=== PATIENT | female | born 2000 | race Caucasian/White ===

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

== ENCOUNTER 2019-03-18 18:21 | Emergency (ER) | payer BC ==
--- OUTSIDE RECORDS SUMMARY | 2019-03-18 18:36 | XMS REPORT | Continuity of Care Document ---
:[address] [facility] Address [address] [place] [address] Phone Care Team Providers Name Role Phone Lucia Cordova NP Unavailable Unavailable Allergies, Adverse Reactions, Alerts Substance Reaction Status No Known Allergies Active Medications Medication Instructions Dosage Effective Dates Status Comments (start - stop) NEXPLANON Not Available - Active (unknown strength) Valtrex 1 gram Take 1 tab PO BID - No Longer tablet x 10 days Active Problems Condition Effective Dates (start - Clinical Status Comments stop) Human immunodeficiency virus [HIV] - counseling Encntr screen for infections w sexl mode of transmiss Encounter for oth general cnsl and advice on contraception Encounter for screening for human - immunodeficiency virus Human immunodeficiency virus [HIV] - counseling Dysuria [...] sexl mode of transmiss Procedures Procedure Date PREVENTIVE COUNSELING, 8-14 Minutes OFFICE/OUTPATIENT VISIT, EST OTHER Medical Services Contraceptive [facility]. Other [facility] STI N.GONORRHOEAE, DNA, AMP PROB CHYLMD DNA, AMP PROBE TRICHOMONAS VAGIN, DIR PROBE N.GONORRHOEAE, DNA, PHARYNGEAL CHYLMD, DNA, PHARYNGEAL HIV-1/HIV-2, SINGLE ASSAY Results Test Name Date and Time Measure Units Reference Range Abnormal Flag Status Comments No information Advance Directives Directive Yes / No Effective Date File Name No information Encounters Encounter Practice Location Reason(s) Diagnoses Date Provider Providers Description For Visit Copied on Encounter [facility]IVE [facility] STI Human Tasha Referring COUNSELING, [facility] [place] Testing immunodeficiency 3-201 Lucia. [address] Provider: 8-14 Minutes Southern with virus [HIV] [address], Lucia Finger Symptoms counselingEncntr [place], [place], Melissa Jin, 620 (F) ([place] [address]. s, [address] [place] complaint) infections w tel:[phone], [place], [place] [address] [place], [place], [place], [address]. [id number], er for oth tel:[phone] general cnsl and [phone] tel:[phone] advice on [phone] contraceptionEnc ounter for screening for human immunodeficiency virus [facility] Human Anjum Willett. Referring [facility] [place] immunodeficiency [address] Provider: Southern virus [HIV] [address], [place], [place], [address], [place], [address] [place], 620 aEnctr srvlnc [place]. [address] [place] [address], St, [place], [place]mal [place], [place], [place], [address]. [id number], ntr screen for [place] infections w tel:[phone] sexl mode of [phone] transmiss [facility] Human Nils-2 Anjum Willett. Referring [facility] [place] immunodeficiency [address] Provider: Southern virus [HIV] [address], [place], [place], [address], [place], [address] [place], 620 aUlceration of [place]. [address] [place] [address] [place] vulva[address]tr [address], , [place], screen [place], [place], [address]. [id number], sexl mode of [place] transmissEnctr tel:[phone] srvlnc [phone] implantable subdermal contraceptive [facility] Human Dec-1 Anjum Willett. Referring [facility] [place] immunodeficiency [address] Provider: Southern virus [HIV] [address], [place], [place], [address], [place], [address] [place], 620 srvlnc [place]. [address] [place] [address], , [place], [place], [place], [place], [address]. [id number], ntr screen for [place] infections w tel:[phone] sexl mode of [phone] transmissEncount er for screening for human immunodeficiency virus [facility] Human Oct-2 Anjum Willett. Referring [facility] [place] immunodeficiency 3 [address] Provider: Southern virus [HIV] [address], [place], [place], [address], [place], [place], [address] ter for [place]. [address] [place] test, St, St, [place], [place], [place], [address]. [id number], srvlnc [place] implantable tel:[phone] subdermal [phone] contraceptiveEnc ntr screen for infections w sexl mode of transmissEncount er for screening for human immunodeficiency virus [facility] Human Nils-1 Anjum Willett. [facility] [place] immunodeficiency [address] Southern virus [HIV] [address], [place], [place], [address], [place], [address] ter for [place]. [address] [place] test, St, [place], result [place], negativeEncounte [id number], r for screening [place] for human tel:[phone] immunodeficiency [phone] virusEnctr srvlnc implantable subdermal contraceptive [facility] Encntr screen [facility] [place] for infections w Lucia. [address] Southern sexl mode of [address], [place] transmissNoninfl [place], [place], [place], 620 ammatory [address]. [address] [place] disorder of tel:[phone] St, [place], [place], [address] [place], unspecified [id number], [place] tel:[phone] [facility] Encounter for Anjum Willett. Referring [facility] [place] initial [address] Provider: Southern prescription of [address], [place], [place], [address], Michelle R, [facility], 620 contraceptives [place]. [address], St, [place], [place], [address]. [id number], tel:[phone] tel:[phone] [facility] Encounter for Anjum Willett. [facility] [place] ot general cnsl [address] [place] Southern and advice on [address], [place], [place], [address], [place], 620 ntr screen for [place]. [address] [place] infections w [address], [place], sexl mode of [place], transmiss [id number], [place] tel:[phone] Family History Family Member Diagnosis Age At Onset Mother No history of Myocardial infarction Father No history of Stroke Mother Stroke Immunizations Vaccine Date Status Comments No information Payers Payer name Insurance type Covered libertarian ID Authorization(s) FPBP PRESUMPTIVE ELIGIBILITY [id number] Social History Type Description Quantity Date Captured Comments Alcohol Use Details Unknown Caffeine Use Unknown Details Tobacco Use Status Light cigarette smoker (1-9 cigs/day) Smoking Status Light tobacco smoker Smoking Tobacco Use Cigarette: Years Used 4 Cigarette: 3 Cigarettes per day, Pack Year: 0.6 Details Sex Female Vital Signs Date / Height Weight BMI Pulse Blood Temperature Respiratory Body Head BMI Pulse Inhaled Time: Rate Pressure Rate Surface Circumference percentile Ox Ox Area No information Chief Complaint And Reason For Visit Most recent encounter only, dated 02/06/2019 13:50'. STI Testing with Symptoms (F) (chief complaint) Reason For Referral Reason For Referral No information Plan Of Treatment Date Type Action Status Goal Tobacco cessation counseling completed Goal Tobacco cessation counseling completed History Of Present Illness Encounter Date Complaint History Of Present Illness No information Functional Status Date Functional Assessment No information Medications Administered Medication Instructions Dosage Effective Dates (start - stop) Status Comments No information Instructions Date Instruction Additional Information No information Assessments Type Assessment Date assessment Human immunodeficiency virus [HIV] counseling assessment Encntr screen for infections w sexl mode of transmiss assessment Encounter for oth general cnsl and advice on contraception 2018 assessment Encounter for screening for human immunodeficiency virus 2018 Goals Health Concern Goal Type Priority Status Date No information Medical Equipment Description Device [place] Device Identifier Effective Dates (start - stop ) Status No information Mental Status Date Cognitive Assessment No information Health Concerns Observation Date No information Concern Status Date No information
--- NOTE | 2019-03-18 18:44 | UC ---
Complaint Female HPI - HPI Summary HPI Summary: 18 yo female with dysuria x 2-3 weeks no back pain no pelvic pain no dyspareunia + vaginal d/c no f/c - History Of Current Complaint Stated Complaint: URINARY Time Seen by Provider: 03/18/19 18:42 Hx Obtained From: Patient Hx Last Menstrual Period: 06/07/2018 Timing: Lasting Seconds Severity Initially: Moderate Severity Currently: None Pain Intensity: 0 Aggravating Factor(s): Urination - terminal dysuria Alleviating Factor(s): Nothing Associated Signs And Symptoms: Positive: Vaginal Discharge. Negative: Fever, Back Pain, Vaginal Bleeding/Discharge, Nausea, Vomiting(# Of Episodes =), Genital Swelling, Genital Blisters, Retained Foregin Body (Specify) Related Hx: Prior STD Hx - chlamydia - Allergies/Home Medications Allergies/Adverse Reactions: Allergies Allergy/AdvReac Type Severity Reaction Status Date / Time aloe Allergy Rash Verified 03/18/19 18:47 PMH/Surg Hx/FS Hx/Imm Hx Previously Healthy: Yes Other History Of: Negative For: Anticoagulant Therapy - Surgical History Surgical History: Yes Surgery Procedure, Year, and Place: 2011 colon removal with J pouch - Family History Known Family History: Positive: Cardiac Disease - Grandfather, Diabetes, Other - familial adenomatous polyposis; mother has had strokes, Non-Contributory - Social History Alcohol Use: None Substance Use Type: None Smoking Status (MU): Light Every Day Tobacco Smoker Amount Used/How Often: 3-5cig/day Household Exposure Type: Cigarettes - Immunization History Most Recent Influenza Vaccination: unable to determine Most Recent Pneumonia Vaccination: unable to determine Vaccination Up to Date: Yes Review of Systems All Other Systems Reviewed And Are Negative: Yes Constitutional: Positive: Negative Skin: Positive: Negative Eyes: Positive: Negative ENT: Positive: Negative Respiratory: Positive: Negative Cardiovascular: Positive: Negative Gastrointestinal: Positive: Negative Genitourinary: Positive: Dysuria, Vaginal/Penile Discharge Motor: Positive: Negative Neurovascular: Positive: Negative Musculoskeletal: Positive: Negative Neurological: Positive: Negative Psychological: Positive: Negative Physical Exam Triage Information Reviewed: Yes Appearance: Well-Appearing, No Pain Distress, Well-Nourished Vital Signs Reviewed: Yes Eyes: Positive: Conjunctiva Clear ENT: Positive: Hearing grossly normal. Negative: Nasal congestion, Nasal drainage, Trismus, Hoarse voice Dental Exam: Normal Neck: Positive: Supple, Nontender, No Lymphadenopathy Respiratory: Positive: Lungs clear, Normal breath sounds, No respiratory distress Cardiovascular: Positive: RRR, No Murmur Abdomen Description: Positive: Nontender, No Organomegaly, Soft. Negative: CVA Tenderness (R), CVA Tenderness (L) Bowel Sounds: Positive: Present Musculoskeletal: Positive: ROM Intact, No Edema Neurological: Positive: Alert Psychological Exam: Normal Skin Exam: Normal Complaint Female Dx - Course Course Of Treatment: The patient [facility]" She refuses a pelvic exam here and decline to do a self swab for BV/yeast/trich - Differential Dx/Diagnosis Provider Diagnosis: Dysuria Discharge ED - Sign-Out/Discharge Documenting (check all that apply): Patient Departure All imaging exams completed and their final reports reviewed: No Studies - Discharge Plan Condition: Stable Disposition: HOME Patient Education Materials: Dysuria (ED) Referrals: Lisbeth Artis MD [Primary Care Provider] - (recheck next week if not better) Additional Instructions: your urine was clear test for gc and chlamydia pending recheck for new or worsening symptoms - Billing Disposition and Condition Condition: STABLE Disposition: Home
[2019-03-18 18:47] VITALS: BP 97/54
[2019-03-20 12:57] LABS: Chlamydia trachomatis NAA Negative (Negative); Neisseria gonorrhoeae (GC) NAA Negative (Negative)
== END 2019-03-18 19:32 | disposition home or self-care (01) ==
LOC: UCCORT 18:21
DX: R30.0 Dysuria (principal); N89.8 Other specified noninflammatory disorders of vagina; F17.210 Nicotine dependence, cigarettes, uncomplicated; Z91.09 Other allergy status, other than to drugs and biological substances
CPT/HCPCS: 81003; 84702; 87491; 87591; 99212; G0463